=== PATIENT | female | born 1990 | race Caucasian/White ===

== ENCOUNTER 2021-01-21 17:51 | Emergency (ER) | payer MEDICAID, OTHER ==
[~2021-01-21] VITALS: Ht 167.6 cm; Wt 70.3 kg
[2021-01-21 22:10] VITALS: BP 124/70
[2021-01-21] MEDS ORDERED: methylPREDNISolone SOD SUCC 125 MG/2 ML VL IM ONE (23:15)
[2021-01-21] MEDS ORDERED: cefTRIAXone SOD 1,000 MG VL IM ONE (23:15)
[2021-01-21] MEDS ORDERED: ACETAMINOPHEN 325 MG TAB PO ONE (23:15)
== END 2021-01-21 23:32 | disposition home or self-care (01) ==
LOC: ER 17:52
DX: J02.9 Acute pharyngitis, unspecified (principal); H66.92 Otitis media, unspecified, left ear
CPT/HCPCS: 81025; 96372; 99284; J0696; J2930